=== PATIENT | male | born 1945 | race Two or more races ===

== ENCOUNTER 2019-02-11 09:08 | Day surgery (SDC) | payer MEDICAID ==
[2019-02-07 10:21] LABS: Basophils # (auto) 0 uL; Basophils % (auto) 0.5 % (0.0-2.0); Eosinophils # (auto) 0.1 uL; Eosinophils % (auto) 1.3 % (0.0-7.0); Hematocrit 44.4 % (41.0-53.0); Lymphocytes # (auto) 1.5 uL; Lymphocytes % (auto) 21.9 % (10.0-50.0); Mean Corpuscular Hemoglobin 28.3 pg (28.0-32.0); Mean Corpuscular Hgb Conc. 33.8 g/dL (32.0-36.0); Mean Corpuscular Volume 83.7 fL (80.0-100.0); Monocytes # (auto) 0.4 uL; Monocytes % (auto) 6.1 % (0.0-12.0); Neutrophils # (auto) 4.9 uL; Neutrophils % (auto) 70.2 % (37.0-80.0); Nucleated Red Blood Cells % 0.1 %; Platelet Count (auto) 158 10^3/uL (140-450)
[2019-02-07 10:41] LABS: INR 0.99 (0.9-1.15); Partial Thromboplastin Time 24.9 sec (23.64-32.05)
[~2019-02-11] VITALS: Ht 175.3 cm; Wt 83.9 kg
[2019-02-11] MEDS ORDERED: SODIUM CHLORIDE LOCK 10 ML ONE (09:31)
[2019-02-11] MEDS ORDERED: fentaNYL CITRATE 100 MCG/2 ML VL ONE (09:32)
[2019-02-11] MEDS ORDERED: MIDAZOLAM HCL 5 MG/ML-1ML VIAL ONE (09:32)
[2019-02-11] MEDS ORDERED: diphenhdrAMINE HCL 50 MG/1 ML VL ONE (09:33)
[2019-02-11 10:40] VITALS: BP 150/93
== END 2019-02-11 11:12 | disposition home or self-care (01) ==
LOC: GI 09:08
PROVIDERS: ATTEND Internal Medicine Gastroenterology
DX: Z12.11 Encounter for screening for malignant neoplasm of colon (principal); D12.3 Benign neoplasm of transverse colon; K57.30 Diverticulosis of large intestine without perforation or abscess without bleeding; K64.8 Other hemorrhoids; E11.9 Type 2 diabetes mellitus without complications
CPT/HCPCS: 36415; 45380; 82962; 85025; 85610; 85730; 88305; J1200; J2250; J3010; J7030; 99152